=== PATIENT | male | born 1985 | race Caucasian/White ===

== ENCOUNTER 2020-02-19 14:34 | Emergency (ER) | payer OTHER, SELFPAY ==
[2020-02-19 14:35] VITALS: BP 132/69; PULSE 74; RESP 16; TEMP 36.3; O2SAT 99
[2020-02-19 14:36] VITALS: BP 132/69; PULSE 74; RESP 16; TEMP 36.3; O2SAT 99
--- NOTE | 2020-02-19 14:59 | ED.VISSUMM ---
- ER Visit Summary Date of Service: 02/19/20 Chief Complaint: [Wound to right knee and pain to right leg] History of Present Illness: The patient is a 34 M [presents to the emergency department with complaint of wound to that he sustained about a month ago when he abraded his knee on a piece of barbed wire fence. Patient states that he continues to have the wound. A week ago he was dipesh and hit himself across the right knee with a 2 x 4 and since that time has been having pain to the right thigh. He developed redness and discomfort to the inner aspect of the thigh. He was seen by his primary care physician and started on Keflex 2 days ago. Patient states that after he bumped his knee started having subjective fever and chills and body aches and was not feeling well. He denies any chest pain or shortness of breath currently. He does not have a history of DVT.] No prior medical history. Physical Examination: [HEENT-PERRLA, EOMI. Cranial nerves II through XII grossly intact. TMs clear. Mucous membranes moist. No adenopathy. Cardiovascular-regular rate and rhythm without murmur or ectopy Lungs-clear to auscultation, chest wall stable without crepitus or subcu emphysema Abdomen-normoactive bowel sounds, soft, nontender, no rebound or rigidity, no peritoneal signs. Extremities-intact ?4, normal range of motion, normal pulses. Right leg-patient does have a abrasion that is healing to the anterior aspect of the right patella. No cellulitic changes noted associated with this. Evaluation of the medial aspect of the thigh does reveal erythema/ecchymosis and ropelike structure palpated. The skin does not appear cellulitic. Neurovascularly intact.] Test Results: [X-ray of right knee obtained and read by myself as no foreign bodies noted within the wound. No bony abnormalities noted.. COVID-19 test ordered and will be pending as it is a send out.] Emergency Department Course and Treatment: Patient was ordered a venous Doppler to be performed tomorrow as ultrasound is not available today. Patient was given 1 dose of Eliquis 10 mg p.o. [] Treatment Plan: [Patient to return tomorrow for a venous Doppler of his right lower extremity to rule out DVT. Patient advised to return if chest pain, shortness of breath, or conditions worsen anyway.] Disposition: [Discharged home in stable condition] Impression: [Right leg pain-rule out DVT] This note was generated with [employer] dictation software. It may contain incorrect words, spelling, and punctuation that were not noted in review of the chart prior to signing ED Disposition - Plan for ED Patient: Instructions: DVT/PE Discharge instruction sheet Referrals: Elmer Arreola DO [NON-STAFF] - Additional Instructions: Return tomorrow to have ultrasound of leg to rule out blood clot
--- NOTE | 2020-02-19 15:06 | RAD_ITS ---
STUDY: X-RAY - RIGHT KNEE REASON FOR EXAM: Male, 34 years old. Injury. Pain. TECHNIQUE: 3 view(s) of the knee. COMPARISON: None. FINDINGS: There is no evidence of fracture or dislocation. There are no significant degenerative changes. There are no radiodense foreign bodies. There is an unfused ossicle adjacent to the anterior tibial tuberosity. RAD/Knee 1 or 2 Views IMPRESSION: No fracture or dislocation in the right knee. Electronically Signed: Francisco Harper, at 15:24 EST Tel , Service support ,
--- NOTE | 2020-02-19 15:13 | ED.DEP ---
ED Disposition - Plan for ED Patient: Instructions: DVT/PE Discharge instruction sheet Referrals: Elmer Arreola DO [NON-STAFF] - Additional Instructions: Return tomorrow to have ultrasound of leg to rule out blood clot
[2020-02-19] MEDS: APIXABAN 5 MG TABLET 10 MG PO (15:25)
== END 2020-02-19 15:42 | disposition home or self-care (01) ==
LOC: ED 15:03
PROVIDERS: Emergency Provider Emergency Medicine
DX: M79.604 Pain in right leg (principal); S80.811A Abrasion, right lower leg, initial encounter; S80.01XA Contusion of right knee, initial encounter; R61 Generalized hyperhidrosis; R68.83 Chills (without fever); W22.8XXA Striking against or struck by other objects, initial encounter; W26.8XXA Contact with other sharp object(s), not elsewhere classified, initial encounter; Y93.9 Activity, unspecified; Y92.9 Unspecified place or not applicable
CPT/HCPCS: 73560; 87635; 99283; U0003

== ENCOUNTER → 2020-02-21 14:02 | Outpatient (CLI) | payer OTHER, SELFPAY ==
--- NOTE | 2020-02-21 14:05 | VDLE_ITS ---
Reason For Study: Pain RIGHT LEFT Acute deep vein thrombosis is noted in the CFV is compressible. right CFV. clot is extending into CFV from GSV. Acute superficial vein thrombosis is noted in the right GSV from distal thigh to junction, extending into CFV. Thrombus filled varicose veins are noted throughoout the prox-mid thigh. FV and PopV are comrpessible. T/P Trunk is compressible. PTV is compressible. RT PerV is compressible. Procedure This is a venous duplex using B-mode, color flow and spectral Doppler. Exam performed in department. The exam was abbreviated due to the COVID 19 protocol. A preliminary report was called and/or faxed to [facility] pt sent to ED for treatment. Interpretation Summary Acute deep venous thrombosis right common femoral vein. Superficial thrombophlebitis right great saphenous vein with thrombus extending into the right common femoral vein Superficial thrombophlebitis varicose veins proximal and mid thigh Patent and compressible left common femoral vein COVID-19 protocol Ordering Physician: Kain Brown Referring Physician: Elmer Arreola Performed By: Muna Puga RVT
== END ==
PROVIDERS: Referring Provider Emergency Medicine; Visit Provider Emergency Medicine
DX: M79.604 Pain in right leg (principal); M79.89 Other specified soft tissue disorders
CPT/HCPCS: 93971

== ENCOUNTER 2020-02-21 15:19 | Emergency (ER) | payer OTHER, SELFPAY ==
[2020-02-21 15:20] VITALS: BP 140/85; PULSE 95; RESP 16; TEMP 36.3; O2SAT 99
[2020-02-21 16:15] VITALS: PULSE 84; RESP 16
--- NOTE | 2020-02-21 16:16 | ED.VIS.GEN ---
History of Present Illness Chief Complaint: Lower Extremity Injury Informant: Patient Onset: Days Context: Gradual Onset Timing: Continuous Current Severity: Mild Maximum Severity: Mild Narrative: Patient is a 34-year-old male with no significant medical history the presents to the emergency department for treatment for lower extremity DVT. Patient was here 2 days ago. He had outpatient study that was ordered. The study was positive for right lower extremity DVT. He denies chest pain or shortness of breath. He denies any history of clotting disease. He denies any pain down the leg. He states is all localized to the area where the thrombus is. Prior similar symptoms: No Recent Illness/Hospitalization: No Past Medical History - Allergies and Home Meds Allergies/Adverse Reactions: Allergies No Known Allergies Allergy (Verified 02/19/20 14:36) Primary Care Physician: Rob Venegas MD [STAFF PHYSICIAN] - Prior records reviewed: Yes Past Medical History: None Surgical History: no surgical history Smoking Status: Never smoker Review of Systems General: Denies: Chills, Fever, Sweats Eyes: Denies: Visual changes - bilaterally, Diplopia ENT: Denies: Rhinorrhea, Sore throat Cardiovascular: Denies: Chest pain, Palpitations Respiratory: Denies: Dyspnea, Cough, Dyspnea on exertion Gastrointestinal: Denies: Abdominal pain, Nausea, Vomiting, Diarrhea, Melena, Hematochezia Genitourinary: Denies: Dysuria, Hematuria, Frequency Musculoskeletal: Denies: Back pain, Extremity Pain Skin: Denies: Rash, Wounds Neurological: Denies: Headache, Weakness, Numbness Physical Exam Vital Signs/Narrative: Vital Signs Temp Pulse Resp BP Pulse Ox 02/21/20 16:15 84 16 02/21/20 15:20 97.3 F L 95 16 140/85 H 99 Inital Vital Signs reviewed: Yes General: Well nourished, Well developed, No Acute Distress Head: Normocephalic, Atraumatic Eyes: Perrl, EOMI ENT: Moist mucous membranes, No rhinorrhea Neck: Supple, Nontender Cardiovascular: Regular rate, Regular rhythm, No murmurs Respiratory: No distress, CTA bilaterally, Chest nontender Abdomen: Soft, Nontender, Nondistended, Normal bowel sounds Back: Nontender, Normal Inspection Extremities: Nontender, No edema Skin: Normal color, No rash Neurological: Alert, Oriented x3, Cranial nerves II-XII grossly intact, Normal Strength, Normal Sensation Psychological: Normal affect, Normal Mood Diagnostic/Tx/Re-eval - Medical Decision Making The patient has normal pulses of his lower extremities. He is mildly tender at the area of the medial right thigh without significant edema. His ultrasound was positive for small thrombus. The patient will be treated with Eliquis. He will be given outpatient follow-up with PCP to follow this. He is comfortable with this plan of care. Impression 1. Lower extremity DVT ED Disposition - Plan for ED Patient: Instructions: ED Deep Vein Thrombosis (DVT) Prescriptions: Apixaban [Eliquis] 5 mg PO BID #74 tab Prescription Printed Referrals: Rob Venegas MD [STAFF PHYSICIAN] -
[2020-02-21 16:49] VITALS: RESP 17
== END 2020-02-21 16:49 | disposition home or self-care (01) ==
LOC: ED 16:29
PROVIDERS: Emergency Provider Emergency Medicine
DX: I82.401 Acute embolism and thrombosis of unspecified deep veins of right lower extremity (principal)
CPT/HCPCS: 99282